=== PATIENT | female | born 1945 | race Caucasian/White ===

== ENCOUNTER 2018-09-19 14:21 | Outpatient (REF) | payer OTHER, SELFPAY ==
[2018-09-19 21:33] LABS: HCT 41.6 % (36.0-46.0); HGB 13.3 g/dL (12.0-15.5); Mean Corpuscular Hemoglobin 28.8 pg (27.0-33.0); Mean Platelet Volume 11.5 fL (8.0-11.0); Platelet Count 254 x1000/uL (130-400); RBC 4.62 m/cumm (4.00-5.20); RBC Distribution Width 14.3 % (11.7-14.6); White Blood Cell Count 7.14 k/cumm (4.4-10.8)
[2018-09-19 22:11] LABS: Hemoglobin A1C 5.6 % (4.5-6.2)
[2018-09-19 22:22] LABS: Anion Gap 8.8 mmol/L (3-11); BUN 27 mg/dL (7-18); CO2 26.2 mmol/L (21.0-32.0); Chloride 108 mmol/L (98-107); Estimated GFR 44.16 (mL/min/1.73m2); Glucose 79 mg/dL (70-100); Potassium 4.6 mmol/L (3.5-5.1); Sodium 143 mmol/L (136-145); TSH 0.06 uIU/mL (0.36-3.74)
[2018-09-22 12:13] LABS: Parathyroid Hormone,Intact 67 pg/ml (19-88)
== END 2018-09-19 14:41 ==
LOC: NCHCN 14:21
PROVIDERS: PCP Family Medicine; Visit Provider Nurse Practitioner Family
DX: E89.0 Postprocedural hypothyroidism (principal); I10 Essential (primary) hypertension; D64.9 Anemia, unspecified; M81.0 Age-related osteoporosis without current pathological fracture; R73.09 Other abnormal glucose; R05 Cough
CPT/HCPCS: 80048; 82306; 85027; 83036; 83970; 84443

== ENCOUNTER 2018-09-22 22:26 | Outpatient (REF) | payer OTHER, SELFPAY ==
[2018-09-24 13:32] LABS: Parathyroid Hormone,Intact 46 pg/ml (19-88)
== END 2018-09-22 22:46 ==
LOC: NCHCN 22:26
PROVIDERS: PCP Family Medicine; Visit Provider Nurse Practitioner Family
DX: E89.0 Postprocedural hypothyroidism (principal); I10 Essential (primary) hypertension; D64.9 Anemia, unspecified; R73.09 Other abnormal glucose; M81.0 Age-related osteoporosis without current pathological fracture; R05 Cough
CPT/HCPCS: 83970; 84100

== ENCOUNTER 2018-12-18 14:41 | Outpatient (REF) | payer OTHER, SELFPAY ==
[2018-12-18 21:47] LABS: TSH 0.22 uIU/mL (0.36-3.74)
== END 2018-12-18 15:01 ==
LOC: NCHCN 14:41
PROVIDERS: PCP Family Medicine; Visit Provider Nurse Practitioner Family
DX: E89.0 Postprocedural hypothyroidism (principal)
CPT/HCPCS: 84443

== ENCOUNTER 2019-03-19 15:19 | Outpatient (REF) | payer OTHER, SELFPAY ==
[2019-03-19 21:15] LABS: Hemoglobin A1C 5.6 % (3.8-5.6)
[2019-03-19 21:19] LABS: BUN 20 mg/dL (7-18); CREATININE 1.18 mg/dL (0.55-1.02); Calcium 8.9 mg/dL (8.5-10.1); Chloride 105 mmol/L (98-107); Estimated GFR 45.02 (mL/min/1.73m2); Glucose 79 mg/dL (74-106); Potassium 4.7 mmol/L (3.5-5.1); Sodium 141 mmol/L (136-145); TSH 2.41 uIU/mL (0.36-3.74)
== END 2019-03-19 15:39 ==
LOC: NCHCN 15:19
PROVIDERS: PCP Family Medicine; Visit Provider Nurse Practitioner Family
DX: R05 Cough (principal); E89.0 Postprocedural hypothyroidism; R25.2 Cramp and spasm; I10 Essential (primary) hypertension; R73.09 Other abnormal glucose; Z86.2 Personal history of diseases of the blood and blood-forming organs and certain disorders involving the immune mechanism
CPT/HCPCS: 80048; 83036; 83735; 84443

== ENCOUNTER 2020-02-16 21:35 | Outpatient (REF) | payer OTHER, SELFPAY ==
[2020-02-16 21:54] LABS: Hemoglobin A1C 5.5 % (<5.7)
[2020-02-16 22:07] LABS: Anion Gap 11.1 mmol/L (3-11); BUN 26 mg/dL (7-18); CO2 23.9 mmol/L (21.0-32.0); CREATININE 1.25 mg/dL (0.55-1.02); Calcium 9.3 mg/dL (8.5-10.1); Chloride 105 mmol/L (98-107); Estimated GFR 42.01 (mL/min/1.73m2); Glucose 81 mg/dL (74-106); Potassium 4.7 mmol/L (3.5-5.1); Sodium 140 mmol/L (136-145); TSH 2.12 uIU/mL (0.36-3.74)
== END 2020-02-16 21:55 ==
LOC: NCHCN 21:35
PROVIDERS: PCP Family Medicine; Visit Provider Nurse Practitioner Family
DX: R73.03 Prediabetes (principal); I10 Essential (primary) hypertension; E89.0 Postprocedural hypothyroidism; M81.0 Age-related osteoporosis without current pathological fracture
CPT/HCPCS: 80048; 83036; 84443

== ENCOUNTER 2021-01-30 21:21 | Outpatient (REF) | payer OTHER, SELFPAY ==
[2021-01-30 22:19] LABS: Hemoglobin A1C 5.5 % (<5.7)
[2021-01-30 22:28] LABS: Anion Gap 9.7 mmol/L (3-11); BUN 26 mg/dL (7-18); CO2 25.3 mmol/L (21.0-32.0); CREATININE 1.2 mg/dL (0.55-1.02); Calcium 9.3 mg/dL (8.5-10.1); Chloride 106 mmol/L (98-107); Estimated GFR 43.91 (mL/min/1.73m2); Glucose 77 mg/dL (74-106); Potassium 4.7 mmol/L (3.5-5.1); Sodium 141 mmol/L (136-145); TSH (W/Ref FT4) 3.84 uIU/mL (0.36-3.74)
[2021-01-30 22:44] LABS: FREE T4 1.39 ng/dL (0.76-1.46)
== END 2021-01-30 21:22 | disposition home or self-care (01) ==
LOC: NCHCN 21:21
PROVIDERS: PCP Family Medicine; Visit Provider Nurse Practitioner Family
DX: R73.03 Prediabetes (principal); I10 Essential (primary) hypertension; E89.0 Postprocedural hypothyroidism
CPT/HCPCS: 80048; 83036; 84439; 84443

== ENCOUNTER 2021-07-26 20:20 | Outpatient (REF) | payer MEDICARE, SELFPAY ==
[2021-07-26 16:03] LABS: HCT 40.2 % (36.0-46.0); HGB 12.5 g/dL (11.2-15.7); MCH 28.7 pg (27.0-33.0); MCHC 31.1 % (32.0-36.0); MCV 92 fL (80-95); Platelet Count 290 10^3/uL (130-400); RBC 4.36 10^6/uL (3.93-5.22); RDW 14.2 % (11.7-14.6); RDW-SD 48.2 fL
[2021-07-26 16:22] LABS: Anion Gap 7.9 mmol/L (3-11); BUN 26 mg/dL (7-18); CO2 27.1 mmol/L (21.0-32.0); CREATININE 1.3 mg/dL (0.55-1.02); Calcium 8.6 mg/dL (8.5-10.1); Chloride 107 mmol/L (98-107); Estimated GFR 39.93 (mL/min/1.73m2); Glucose 72 mg/dL (74-106); Potassium 4.6 mmol/L (3.5-5.1); Sodium 142 mmol/L (136-145); TSH 1.85 uIU/mL (0.36-3.74)
[2021-07-26 17:49] LABS: Hemoglobin A1C 5.6 % (<5.7)
== END 2021-07-26 20:21 | disposition home or self-care (01) ==
LOC: NCHCN 20:20
PROVIDERS: PCP Family Medicine; Visit Provider Nurse Practitioner Family
DX: I10 Essential (primary) hypertension (principal); R73.03 Prediabetes; E89.0 Postprocedural hypothyroidism; N18.31 Chronic kidney disease, stage 3a
CPT/HCPCS: 80048; 85027; 83036; 84443

== ENCOUNTER 2021-08-29 10:23 | Outpatient (REF) | payer MEDICARE, SELFPAY ==
[2021-08-29 15:29] LABS: Anion Gap 8.1 mmol/L (3-11); BUN 24 mg/dL (7-18); CO2 25.9 mmol/L (21.0-32.0); CREATININE 1.3 mg/dL (0.55-1.02); Calcium 8.8 mg/dL (8.5-10.1); Chloride 106 mmol/L (98-107); Estimated GFR 39.93 (mL/min/1.73m2); Glucose 79 mg/dL (74-106); Potassium 4.2 mmol/L (3.5-5.1); Sodium 140 mmol/L (136-145)
== END 2021-08-29 10:24 | disposition home or self-care (01) ==
LOC: NCHCN 10:23
PROVIDERS: PCP Family Medicine; Visit Provider Nurse Practitioner Family
DX: I10 Essential (primary) hypertension (principal); N18.31 Chronic kidney disease, stage 3a
CPT/HCPCS: 80048

== ENCOUNTER 2021-10-16 15:44 | Outpatient (REF) | payer MEDICARE, SELFPAY ==
[2021-10-16 18:09] LABS: Vitamin D 25 Total 42.3 ng/mL (30-100)
== END 2021-10-16 15:45 | disposition home or self-care (01) ==
LOC: NCHCN 15:44
PROVIDERS: PCP Family Medicine; Visit Provider Nurse Practitioner Family
DX: M81.0 Age-related osteoporosis without current pathological fracture (principal)
CPT/HCPCS: 82306

== ENCOUNTER 2021-12-19 17:53 | Outpatient (REF) | payer MEDICARE, SELFPAY ==
[2021-12-21 11:23] LABS: COVID-19 RT-PCR UVMMC Result Negative (Negative)
== END 2021-12-19 17:54 | disposition home or self-care (01) ==
LOC: NCHCN 17:53
PROVIDERS: PCP Family Medicine; Visit Provider Nurse Practitioner Family
DX: Z20.822 Contact with and (suspected) exposure to COVID-19 (principal); J06.9 Acute upper respiratory infection, unspecified
CPT/HCPCS: U0003

== ENCOUNTER 2022-02-22 15:24 | Outpatient (REF) | payer MEDICARE, SELFPAY ==
[2022-02-22 16:05] LABS: Anion Gap 6.6 mmol/L (3-11); BUN 24 mg/dL (7-18); CO2 28.4 mmol/L (21.0-32.0); CREATININE 1.2 mg/dL (0.55-1.02); Calcium 9.3 mg/dL (8.5-10.1); Chloride 104 mmol/L (98-107); Estimated GFR 47.21 (mL/min/1.73m2); Glucose 79 mg/dL (74-106); Potassium 4.3 mmol/L (3.5-5.1); Sodium 139 mmol/L (136-145)
[2022-02-22 16:10] LABS: Hemoglobin A1C 5.6 % (<5.7)
== END 2022-02-22 15:25 | disposition home or self-care (01) ==
LOC: NCHCN 15:24
PROVIDERS: PCP Family Medicine; Visit Provider Nurse Practitioner Family
DX: R73.03 Prediabetes (principal); I10 Essential (primary) hypertension
CPT/HCPCS: 80048; 83036

== ENCOUNTER 2022-03-01 11:09 | Outpatient (REF) | payer MEDICARE, SELFPAY ==
[2022-03-01 14:56] LABS: Calculated LDL 144 mg/dL (<100); Cholesterol 245 mg/dL (<200); HDL Cholesterol 76 mg/dL (40-60); TSH (W/Ref FT4) 1.76 uIU/mL (0.36-3.74); Triglyceride 126 mg/dL (<150)
== END 2022-03-01 11:10 | disposition home or self-care (01) ==
LOC: NCHCN 11:09
PROVIDERS: PCP Family Medicine; Visit Provider Nurse Practitioner Family
DX: E89.0 Postprocedural hypothyroidism (principal); Z13.220 Encounter for screening for lipoid disorders
CPT/HCPCS: 80061; 84443

== ENCOUNTER 2022-04-11 09:26 | Outpatient (REF) | payer MEDICARE, SELFPAY ==
[2022-04-11 15:54] LABS: ALT 30 U/L (14-59); AST 25 U/L (15-37); Albumin 3.9 g/dL (3.4-5.0); Alkaline Phosphatase 66 U/L (46-116); Anion Gap 9.2 mmol/L (3-11); BUN 31 mg/dL (7-18); Bilirubin, Total 0.4 mg/dL (0.2-1.0); CO2 25.8 mmol/L (21.0-32.0); CREATININE 1.2 mg/dL (0.55-1.02); Calcium 9.3 mg/dL (8.5-10.1); Calculated LDL 74 mg/dL (<100); Chloride 106 mmol/L (98-107); Cholesterol 167 mg/dL (<200); Estimated GFR 47.21 (mL/min/1.73m2); Glucose 88 mg/dL (74-106); HDL Cholesterol 82 mg/dL (40-60); Potassium 4.7 mmol/L (3.5-5.1); Sodium 141 mmol/L (136-145); Total Protein 7.8 g/dL (6.4-8.2); Triglyceride 57 mg/dL (<150)
== END 2022-04-11 09:27 | disposition home or self-care (01) ==
LOC: NCHCN 09:26
PROVIDERS: PCP Family Medicine; Visit Provider Nurse Practitioner Family
DX: E78.5 Hyperlipidemia, unspecified (principal); I10 Essential (primary) hypertension
CPT/HCPCS: 80053; 80061

== ENCOUNTER 2023-04-19 15:46 | Outpatient (REF) | payer MEDICARE, SELFPAY ==
[2023-04-19 15:35] LABS: HCT 39.7 % (36.0-46.0); HGB 12.5 g/dL (11.2-15.7); MCHC 31.5 % (32.0-36.0); MCV 89 fL (80-95); MPV 10.6 fL (8.0-11.0); Platelet Count 247 10^3/uL (130-400); RBC 4.46 10^6/uL (3.93-5.22); RDW 14.8 % (11.7-14.6); RDW-SD 48.2 fL; WBC 4.99 10^3/uL (4.4-10.8)
[2023-04-19 16:08] LABS: Anion Gap 10.2 mmol/L (3-11); BUN 21 mg/dL (7-18); CO2 25.8 mmol/L (21.0-32.0); CREATININE 1.2 mg/dL (0.55-1.02); Calculated LDL 144 mg/dL (<100); Chloride 106 mmol/L (98-107); Cholesterol 232 mg/dL (<200); Estimated GFR 46.62 (mL/min/1.73m2); Glucose 89 mg/dL (74-106); HDL Cholesterol 74 mg/dL (40-60); Potassium 4.7 mmol/L (3.5-5.1); Sodium 142 mmol/L (136-145); Triglyceride 74 mg/dL (<150)
[2023-04-19 16:31] LABS: Hemoglobin A1C 5.4 % (<5.7)
== END 2023-04-19 15:47 | disposition home or self-care (01) ==
LOC: NCHCN 15:46
PROVIDERS: PCP Family Medicine; Visit Provider Nurse Practitioner Family
DX: E78.5 Hyperlipidemia, unspecified (principal); R73.03 Prediabetes
CPT/HCPCS: 80048; 80061; 85027; 83036; 84443

== ENCOUNTER 2023-04-29 18:17 | Outpatient (REF) | payer MEDICARE, SELFPAY ==
--- NOTE | 2023-04-29 11:30 | PAPFT_PTH ---
PATIENT: Deborah Cruz LOC: [facility]#:[id number] AGE/SX: 78/F ROOM: RE04/29/[address]: Debbie Bowling : 1945 BED: DIS: 04/29/2023 SPEC #: [id number] RECD: 04/30/23 12:59 STATUS: INOCENTE REElina #: [id number] OJEL: 04/29/23 11:[address]: Debbie Huston DEPT: [facility] Cytology RECD BY: Katherin Barragan ENTERED: 04/30/23 12:59 SP TYPE: PAPFT SOSA DR: Randal Bernstein Tissues: 1 - CX/ENDOCX FOR PAP SMEARS Procedures: PAP THIN PREP/[facility] Screening HPV DNA PROBE Comments: [id number]
== END 2023-04-29 18:18 | disposition home or self-care (01) ==
LOC: NCHCN 18:17
PROVIDERS: PCP Family Medicine; Referring Provider Nurse Practitioner Family; Visit Provider Nurse Practitioner Family
DX: Z01.419 Encounter for gynecological examination (general) (routine) without abnormal findings (principal); Z11.51 Encounter for screening for human papillomavirus (HPV)
CPT/HCPCS: 88142; 87624

== ENCOUNTER 2023-10-16 10:12 | Outpatient (REF) | payer MEDICARE, SELFPAY | END 2023-10-16 10:13 | disposition home or self-care (01) | LOC: NCHCN 10:12 | PROVIDERS: PCP Family Medicine; Visit Provider Family Medicine | DX: R10.9 Unspecified abdominal pain (principal) | CPT/HCPCS: 87086 ==

== ENCOUNTER 2024-04-23 08:12 | Outpatient (REF) | payer MEDICARE, SELFPAY ==
[2024-04-23 14:40] LABS: HCT 39.6 % (36.0-46.0); HGB 12.4 g/dL (11.2-15.7); MCH 28.1 pg (27.0-33.0); MCHC 31.3 % (32.0-36.0); MCV 90 fL (80-95); MPV 10.7 fL (8.0-11.0); Platelet Count 260 10^3/uL (130-400); RBC 4.41 10^6/uL (3.93-5.22); RDW 15.4 % (11.7-14.6); RDW-SD 51.4 fL; WBC 5.61 10^3/uL (4.4-10.8)
[2024-04-23 15:04] LABS: ALT 23 U/L (14-59); AST 24 U/L (15-37); Albumin 3.6 g/dL (3.4-5.0); Alkaline Phosphatase 73 U/L (46-116); Anion Gap 5.4 mmol/L (3-11); BUN 20 mg/dL (7-18); Bilirubin, Total 0.55 mg/dL (0.2-1.0); CO2 26.6 mmol/L (21.0-32.0); CREATININE 1.3 mg/dL (0.55-1.02); Chloride 110 mmol/L (98-107); Estimated GFR 42.09 (mL/min/1.73m2); Glucose 83 mg/dL (74-106); HDL Cholesterol 72 mg/dL (40-60); Potassium 4.4 mmol/L (3.5-5.1); Sodium 142 mmol/L (136-145); TSH 0.28 uIU/mL (0.36-3.74); Total Protein 7.3 g/dL (6.4-8.2); Triglyceride 63 mg/dL (<150)
[2024-04-23 15:17] LABS: Calculated LDL 49 mg/dL (<100); Cholesterol 133 mg/dL (<200)
[2024-04-23 15:30] LABS: Hemoglobin A1C 5.8 % (<5.7)
== END 2024-04-23 08:13 | disposition home or self-care (01) ==
LOC: NCHCN 08:12
PROVIDERS: PCP Family Medicine; Visit Provider Nurse Practitioner Family
DX: I10 Essential (primary) hypertension (principal); R73.03 Prediabetes; E78.5 Hyperlipidemia, unspecified; E03.9 Hypothyroidism, unspecified
CPT/HCPCS: 80053; 80061; 85027; 83036; 84443

== ENCOUNTER 2024-07-30 11:14 | Outpatient (REF) | payer MEDICARE, MEDICAID, SELFPAY ==
[2024-07-30 16:18] LABS: TSH 6.76 uIU/mL (0.36-3.74)
== END 2024-07-30 11:15 | disposition home or self-care (01) ==
LOC: NCHCN 11:14
PROVIDERS: PCP Family Medicine; Visit Provider Nurse Practitioner Family
DX: E03.9 Hypothyroidism, unspecified (principal)
CPT/HCPCS: 84443

== ENCOUNTER 2024-10-14 14:32 | Outpatient (REF) | payer MEDICARE, MEDICAID, SELFPAY ==
[2024-10-14 15:05] LABS: HCT 39.2 % (36.0-46.0); HGB 11.8 g/dL (11.2-15.7); MCH 27.3 pg (27.0-33.0); MCHC 30.1 % (32.0-36.0); MCV 91 fL (80-95); MPV 11.5 fL (8.0-11.0); Platelet Count 227 10^3/uL (130-400); RBC 4.32 10^6/uL (3.93-5.22); RDW 15.3 % (11.7-14.6); RDW-SD 50.9 fL; WBC 6.59 10^3/uL (4.4-10.8)
[2024-10-14 15:32] LABS: Hemoglobin A1C 5.5 % (<5.7)
[2024-10-14 15:39] LABS: Iron 63 ug/dL (50-170); Total Iron Binding Capacity 425 ug/dL (250-450); Transferrin Sat 15 % (15-50)
[2024-10-14 18:05] LABS: Ferritin 31 ng/mL (8-252); TSH 1.99 uIU/mL (0.36-3.74)
== END 2024-10-14 14:33 | disposition home or self-care (01) ==
LOC: NCHCN 14:32
PROVIDERS: PCP Family Medicine; Visit Provider Nurse Practitioner Family
DX: D64.9 Anemia, unspecified (principal); R73.03 Prediabetes; E03.9 Hypothyroidism, unspecified
CPT/HCPCS: 85027; 82728; 83036; 83540; 83550; 84443